=== PATIENT | male | born 1935 | race Caucasian/White ===

== ENCOUNTER 2022-02-22 07:47 | Outpatient (CLI) | payer OTHER | END 2022-02-22 07:48 | disposition home or self-care (01) | LOC: NUCLEAR 07:47 | PROVIDERS: ATTEND Psychiatry & Neurology Neurology | DX: G30.9 Alzheimer's disease, unspecified (principal) | CPT/HCPCS: 78803; A9552 ==

== ENCOUNTER 2023-06-21 13:26 | Emergency (ER) | payer OTHER ==
[~2023-06-21] VITALS: Ht 170.2 cm; Wt 59.0 kg
[2023-06-21] MEDS ORDERED: TAMS0.4C PO (14:20)
[2023-06-21] MEDS ORDERED: COZAAR50 MG PO (14:20)
[2023-06-21] MEDS ORDERED: PROTONIX40 M1 (14:21)
[2023-06-21] MEDS ORDERED: PEPCID AC20 MG PO (14:22)
[2023-06-21] MEDS ORDERED: NAMENDA10 MG PO (14:22)
== END 2023-06-21 17:37 | disposition left against medical advice (07) ==
LOC: ER 13:26
PROVIDERS: Emergency Medicine
DX: N17.8 Other acute kidney failure (principal); R53.1 Weakness; Z88.1 Allergy status to other antibiotic agents
CPT/HCPCS: 36415; 74176; 96365; 96366; 99284; J7030